=== PATIENT | male | born 1980 | race Caucasian/White ===

== ENCOUNTER 2017-05-29 12:09 | Emergency (ER) | payer SELFPAY ==
[~2017-05-29] VITALS: Ht 170.2 cm; Wt 90.9 kg
[2017-05-29 12:12] VITALS: BP 179/125
== END 2017-05-29 14:06 | disposition home or self-care (01) ==
LOC: EMS 12:11
DX: S40.012A Contusion of left shoulder, initial encounter (principal); V00.131A Fall from skateboard, initial encounter; Y93.51 Activity, roller skating (inline) and skateboarding; Y92.89 Other specified places as the place of occurrence of the external cause; Y99.8 Other external cause status
CPT/HCPCS: 99284